=== PATIENT | male | born 1960 | race Caucasian/White ===

== ENCOUNTER 2017-12-06 08:53 | Day surgery (SDC) | payer OTHER ==
[2017-12-06] MEDS ORDERED: INSULIN ASPART [NOVOLOG] 3 ML PEN SC (10:30)
[2017-12-06] MEDS ORDERED: ONDANSETRON 4 MG INJ IV (11:00)
[2017-12-06] MEDS ORDERED: LIDOCAINE 2% (SDV) 5 ML INJ (11:25)
[2017-12-06] MEDS ORDERED: PROPOFOL 40 ML (11:25)
== END 2017-12-06 13:57 | disposition home or self-care (01) ==
LOC: GIL 08:53
DX: Z12.11 Encounter for screening for malignant neoplasm of colon (principal); Z86.010 Personal history of colon polyps; K64.8 Other hemorrhoids; K64.4 Residual hemorrhoidal skin tags; E11.9 Type 2 diabetes mellitus without complications; E78.5 Hyperlipidemia, unspecified; E03.9 Hypothyroidism, unspecified; I10 Essential (primary) hypertension
CPT/HCPCS: 45378; 82962